=== PATIENT | male | born 1985 | race Caucasian/White ===

== ENCOUNTER → 2021-03-01 | Outpatient (CLI) | payer OTHER, SELFPAY | END | disposition home or self-care (01) | LOC: LABSPEC 13:54 | PROVIDERS: PCP Family Medicine; Referring Provider Family Medicine; Visit Provider Family Medicine | DX: Z20.822 Contact with and (suspected) exposure to COVID-19 (principal) | CPT/HCPCS: 87635; U0002 ==

== ENCOUNTER 2023-05-31 16:10 | Outpatient (CLI) | payer OTHER, SELFPAY ==
--- NOTE | 2023-05-31 | VAS_PTH ---
PATIENT: SHANTAL HURST LOC: [facility] U#:[id number] AGE/SX: 38/M ROOM: RE05/31/[address]: Dr. Saeed Castillo MD : [id number] BED: DIS: 05/31/2023 SPEC #: [id number] RECD: 05/31/23 15:57 STATUS: CARLOS LIYAH #: [id number] BRITTANY: 05/31/23 00:[address]: Saeed Castillo DEPT: SURGICAL PATHOLOGY RECD BY: Stacey Chaudhry ENTERED: 06/04/23 23:02 SP TYPE: VAS OTHR DR: Dr. James Reyes MD Tissues: A - Vas deferens, NOS B - Vas deferens, NOS Procedures: Surgery Specimen Level II HEADER OPERATION: Bilateral partial vasectomy PRE-OP DIAGNOSIS: Sterilization TISSUE SUBMITTED: A - Left vas deferens, B - Right vas deferens MICROSCOPIC DIAGNOSIS A. Left vas deferens, partial vasectomy: Completely transected segment of vas deferens, no pathologic diagnosis. B. Right vas deferens, partial vasectomy: Completely transected segment of vas deferens, no pathologic diagnosis. TONY:mahesh 06/05/2023 MICROSCOPIC DESCRIPTION Slides are reviewed. GROSS DESCRIPTION A - Received is one container designated left vas deferens. The specimen consists of a tubular segment of cordova soft tissue measuring 0.5 cm in length and 0.1 cm in diameter. The specimen is sectioned and submitted entirely in one cassette. B - Received is one container designated right vas deferens. The specimen consists of a tubular segment of cordova soft tissue measuring 0.6 cm in length and 0.2 cm in diameter. The specimen is sectioned and submitted entirely in one cassette. / TONY:mahesh 06/03/2023 TC:4 [facility]: [id number] x2
== END 2023-05-31 23:59 | disposition home or self-care (01) ==
LOC: LABSPEC 16:12
PROVIDERS: PCP Family Medicine; Referring Provider Surgery; Visit Provider Surgery
DX: Z98.52 Vasectomy status (principal)
CPT/HCPCS: 88302

== ENCOUNTER → 2023-07-05 | Outpatient (CLI) | payer OTHER, SELFPAY ==
[2023-07-05 13:26] LABS: Semen Analysis Post Vas ABSENT
[2023-07-09 15:26] LABS: Pathologist Review Reviewed
== END | disposition home or self-care (01) ==
LOC: LAB 10:40
PROVIDERS: PCP Family Medicine; Referring Provider Surgery; Visit Provider Surgery
DX: Z30.2 Encounter for sterilization (principal)
CPT/HCPCS: 89321

== ENCOUNTER → 2023-07-11 | Outpatient (CLI) | payer OTHER, SELFPAY ==
[2023-07-11 11:13] LABS: Semen Analysis Post Vas ABSENT
[2023-07-12 14:16] LABS: Pathologist Review Reviewed
== END | disposition home or self-care (01) ==
LOC: LABSPEC 08:04
PROVIDERS: PCP Family Medicine; Referring Provider Surgery; Visit Provider Surgery
DX: Z30.2 Encounter for sterilization (principal)
CPT/HCPCS: 89321

== ENCOUNTER 2024-10-13 16:50 | Emergency (ER) | payer OTHER, SELFPAY ==
[2024-10-13 16:51] VITALS: BP 136/83; PULSE 69; RESP 16; TEMP 37.3; O2SAT 100; BMI 26.1
[2024-10-13] MEDS: Metoclopramide 10 MG/2 ML Vial 5 MG IV (17:18)
[2024-10-13] MEDS: DiphenhydrAMINE 50 MG/ML Syringe 25 MG IV (17:18)
[2024-10-13] MEDS: 0.9% Normal Saline (1000mL) 1,000 ML 999 ML IV (17:18)
[2024-10-13 17:42] LABS: Absolute Lymphocyte Count 1.21 X10^3/uL (0.83-4.51); Basophil# 0.02 X10^3/uL; Basophil% 0.3 % (0-1); Hematocrit 44.2 % (40-54); Hemoglobin 15.4 g/dL (13.0-16.5); Lymphocyte # 1.21 X10^3/ul (0.83-4.51); Lymphocyte % 17.6 % (19-41); Mean Corp Hgb Conc 34.8 g/dL (32-36); Mean Corpuscular Hgb 29.4 pg (27.0-32.0); Mean Corpuscular Volume 84.4 fL (80-94); Mean Platelet Vol. 9.9 fl (6.2-12.0); Monocyte# 0.64 X10^3/uL; Monocyte% 9.3 % (0-10); NRBC Flagged by Analyzer 0 % (0-5); Neutrophil # 4.98 X10^3/uL (2.7-7.7); Neutrophil % 72.5 % (47-70); Platelet Count 265 K/mm3 (150-450); RBC Distribution Width CV 12.4 % (11.6-14.6); Red Blood Count 5.24 M/mm3 (4.6-6.2); White Blood Count 6.9 K/mm3 (4.4-11.0)
[2024-10-13 17:45] LABS: Anion Gap 8 (5-15); BUN 18 mg/dL (7-18); BUN/Creat Ratio 18.6 RATIO (10-20); Calcium,Total 9.2 mg/dL (8.5-10.1); Chloride 101 mmol/L (98-107); Creatinine, Serum 0.97 mg/dL (0.70-1.30); EST Glomerular Filtration Rate 92 mL/min (>60); Est Glom Filt Rate - Afr Amer 112 mL/min (>60); Estimated Creatinine Clearance 107.66 ml/min; Glucose 120 mg/dL (74-106); Potassium 3.7 mmol/L (3.5-5.1); Sodium Level 135 mmol/L (136-145)
[2024-10-13 18:46] VITALS: BP 145/76; PULSE 75; RESP 14; O2SAT 98
[2024-10-13] MEDS: Ketorolac 30 MG/ML Syringe IV (19:21)
[2024-10-13 19:26] VITALS: BP 145/76; PULSE 71; RESP 16; TEMP 36.8; O2SAT 99
== END 2024-10-13 19:44 | disposition home or self-care (01) ==
PROVIDERS: Emergency Provider Emergency Medicine; PCP Family Medicine; Visit Provider Emergency Medicine
DX: G43.909 Migraine, unspecified, not intractable, without status migrainosus (principal)
CPT/HCPCS: 70450; 80048; 85025; 96361; 96374; 96375; 99283; J7030; A4216

== ENCOUNTER → 2025-05-13 | Outpatient (CLI) | payer OTHER, SELFPAY ==
--- NOTE | 2025-05-13 16:52 | RAD_ITS ---
PROCEDURE: L/S SPINE W BEND MIN 6 VW 05/13/2025 REASON FOR EXAM: LBP WITH RADIATION TO L LEG TECHNIQUE: Standing AP view(s) of the thoracic and lumbar spine. FINDINGS: Mild levoscoliosis apex at L3. Grade 1 anterolisthesis of L5 on S1 measuring 4.6 mm. No evidence of instability on flexion/extension images. There are diffuse spondylotic changes. Findings are demonstrated to by diffuse disc space narrowing, osteophyte formation and degenerative endplate sclerosis. There is diffuse facet joint arthropathy with secondary bilateral neural foramina narrowing. No fracture or dislocation is seen. No aggressive lytic or blastic bony lesion is noted. RAD/L/S Spine w Bend Min 6 Vw IMPRESSION: Spondylosis. No evidence of instability. Reading [facility]
== END | disposition home or self-care (01) ==
LOC: MTRAD 16:52
PROVIDERS: PCP Family Medicine; Referring Provider Family Medicine; Visit Provider Family Medicine
DX: M54.50 Low back pain, unspecified (principal)
CPT/HCPCS: 72114

== ENCOUNTER → 2025-05-29 | Outpatient (CLI) | payer SELFPAY, OTHER ==
--- OUTSIDE RECORDS SUMMARY | 2025-05-29 09:49 | XMS RPT_ITS | CCD ---
Author Organization [facility] Care Team Providers Care Insurance Sales Specialist Name Role Phone Unavailable Primary Care Provider UnavailDr. Saleem Ibarra Primary Care Provider Dr. Saleem Reyes Referring Provider Dr. Saeed Castillo Attending Provider Amy HUSAIN, Dr. Ramirez Primary Care Provider Amy HUSAIN, Dr. Ramirez Attending Provider Amy HUSAIN, Dr. Ramirez Referring Provider [phone] James Reyes Primary Care Unavailable James Reyes Attending Unavailable James Reyes Referring Unavailable Esteban Piña Attending Unavailable James Reyes Primary Care Unavailable James Reyes Primary Care Unavailable James Reyes Attending Unavailable James Reyes Referring Unavailable Medications Current Medications Medication Drug Class(es) Dates Sig (Normalized) Sig (Original) dicloxacillin 500 mg oral capsule (1 source) Penicillin-class Antibacterial Start: 05-04-2023 End: 05-09-2023 take 1 capsule by mouth four times daily dicloxacillin (DYNAPEN) 500 mg capsule Indications: Olecranon bursitis of left elbow Take 1 capsule by mouth four times daily for 5 days. 20 capsule 0 05/04/2023 05/09/2023 Active Comment on above: Take 1 capsule by [facility] four times daily for 5 days. metoclopramide 10 mg oral tablet (1 source) Dopamine-2 Receptor Antagonist Start: 10-13-2024 take 1 tablet by mouth every six hours as needed for nausea and vomiting Metoclopramide Hcl 10 mg tablet Active 10 mg PO EVERY 6 HOURS as needed for nausea and vomiting or migraine October 13, 2024 8:15pm Completed/Discontinued Medications Medication Drug Class(es) Dates Sig (Normalized) Sig (Original) amoxicillin 875 mg oral tablet (3 sources) Penicillin-class Antibacterial Start: 02-03-2016 End: 05-23-2023 take 1 tablet by mouth twice daily Amoxicillin 875 MG tablet Discontinued 875 mg PO TWICE A DAY February 03, 2016 1:00am May 23, 2023 8:00am LORazepam 2 mg oral tablet (3 sources) Benzodiazepine Start: 05-23-2023 End: 05-24-2023 take 1 tablet by mouth once Lorazepam (Ativan) 2 mg tablet Discontinued 2 mg PO ONCE 1 May 23, 2023 12:00am May 23, 2023 12:00am May 24, 2023 12:04am Take two hours before procedure oxyCODONE hydrochloride 5 mg oral tablet (3 sources) Opioid Agonist Start: 05-31-2023 End: 06-03-2023 take 1 tablet by mouth every four hours as needed for pain Oxycodone 5 mg tablet Discontinued 5 mg PO Q4H as needed for pain 7 May 31, 2023 June 02, 2023 12:00am June 03, 2023 12:03am Problems Problem Classification Problem Date Documented Date Episodic/Chronic Contraceptive and procreative management (11 sources) Patient encounter status; Translations: [Encounter for other general counseling and advice on contraception] 05-23-2023 Episodic Headache; including migraine (1 source) Migraine; Translations: [Migraine, unspecified, not intractable, without status migrainosus] 10-21-2024 Chronic Headache; including migraine (1 source) Headache; including migraine; Translations: [Headache, unspecified] Onset: 11-05-2024 Other connective tissue disease (1 source) Bursitis of olecranon of left elbow; Translations: [Olecranon bursitis, left elbow] Episodic Unclassified (1 source) Other intervertebral disc degeneration, lumbar region without mention of lumbar back pain or lower extremity pain; Translations: [Other intervertebral disc degeneration, lumbar region without mention of lumbar back pain or lower extremity pain] Onset: 05-27-2025 Unclassified (1 source) Low back pain, unspecified; Translations: [Low back pain, unspecified] Onset: 05-19-2025 Results Test Name Value Interpretation Reference Range Facility L/S Spine w Bend Min 6 Vwon 05-13-2025 L/S Spine w Bend Min 6 Vw [facility] Imaging Services [address] [place] [address] L/S Spine w Bend Min 6 Vw MR#: [id number] Acct: [id number] Name: SHANTAL HURST Rep #: [id number] : 1985 M 40 From: Tex fink MD PCP: Dr. James Reyes MD Status: REG CLI Study: L/S Spine w Bend Min 6 Vw Date of Exam: Exam# [id number] Ordering Dr: James Reyes PROCEDURE: L/S SPINE W BEND MIN 6 VW 05/13/2025 REASON FOR EXAM: LBP WITH RADIATION TO L LEG TECHNIQUE: Standing AP view(s) of the thoracic and lumbar spine. FINDINGS: Mild levoscoliosis apex at L3. Grade 1 anterolisthesis of L5 on S1 measuring 4.6 mm. No evidence of instability on flexion/extension images. There are diffuse spondylotic changes. Findings are demonstrated to by diffuse disc space narrowing, osteophyte formation and degenerative endplate sclerosis. There is diffuse facet joint arthropathy with secondary bilateral neural foramina narrowing. No fracture or dislocation is seen. No aggressive lytic or blastic bony lesion is noted. RAD/L/S Spine w Bend Min 6 Vw IMPRESSION: Spondylosis. No evidence of instability. Reading Location: [place] [address] CC: Dr. James Reyes MD Digital Producer: Signed Normal [facility] Basic Metabolic Profile (BMP )on 10-13-2024 BUN/CRE 18.6 RATIO Normal 10-20 [facility] Comment on above: Performed By: #### L 100.0100, L500.2500 #### [facility] Laboratory [address] [place], [place], [address] ([phone] CA,Total 9.2 mg/dL Normal 8.5-10.1 [facility] Comment on above: Performed By: #### L 100.0100, L500.2500 #### [facility] [address] [place], [address] Chloride [Moles/Vol] 101 mmol/L Normal 98-107 [facility] Comment on above: Performed By: #### L 100.0100, L500.2500 #### [facility] [address] [place], [address] CO2 [Moles/Vol] 26.0 mmol/L Normal 21.0-32.0 [facility] Comment on above: Performed By: #### L 100.0100, L500.2500 #### [facility] [address] [place], [address] Creatinine [Mass/Vol] 0.97 mg/dL Normal 0.70-1.[address] [facility] Comment on above: Result Comment: The validity of the calculated GFR GFRAA in patients over 70 years has not been determined. Clinical correlation is essential. Performed By: #### L 100.0100, L500.2500 #### [facility] [address] [place], [address] ECRCL 107.66 ml/min Normal [facility] Comment on above: Performed By: #### L 100.0100, L500.2500 #### [facility] [address] [place], [address] EST GFR - AA 112 mL/min Normal >60 [facility] Comment on above: Result Comment: Afri can Brazilian GFR Calc Performed By: #### L 100.0100, L500.2500 #### [facility] [address] [place], [address] GAP 8 Normal 5-15 [facility] Comment on above: Performed By: #### L 100.0100, L500.2500 #### [facility] [address] [place], [address] GFR/1.73 sq M.predicted among non-blacks MDRD (S/P/Bld) [Vol rate/Area] 92 mL/min/{1.73_m2} Normal >60 [facility] Comment on above: Result Comment: Non- GFR Calc Performed By: #### L 100.0100, L500.2500 #### [facility] [address] [place], [address] Glucose [Mass/Vol] 120 mg/dL High 74-106 [facility] Comment on above: Result Comment: Fast ing Glucose result from 100 to 125 mg/dL suggests IMPAIRED HOMEOSTASIS per A.D.A. criteria. Performed By: #### L 100.0100, L500.2500 #### [facility] [address] [place], [address] Potassium [Moles/Vol] 3.7 mmol/L Normal 3.5-5.[address] [facility] Comment on above: Performed By: #### L 100.0100, L500.2500 #### [facility] [address] [place], [address] Sodium [Moles/Vol] 135 mmol/L Low 136-145 [facility] Comment on above: Performed By: #### L 100.0100, L500.2500 #### [facility] [address] [place], [address] Urea nitrogen [Mass/Vol] 18 mg/dL Normal 7-18 [facility] Comment on above: Performed By: #### L 100.0100, L500.2500 #### [facility] [address] [place], [address] Brain/Head without Contrasto n 10-13-2024 Brain/Head without Contrast [facility] Imaging Services [address] [place] [address] Brain/Head without Contrast MR#: [id number] Acct: [id number] Name: SHATNAL HURST Rep #: [id number] : 1985 M 39 From: Nolan Rojo PCP: Dr. James Reyes MD Status: REG ER Study: Brain/Head without Contrast Date of Exam: 10/02 01/25 Exam# [id number] Ordering Dr: Esteban Piña MD [id number] STUDY: CT BRAIN WITHOUT CONTRAST REASON FOR EXAM: Male, 39 years old. severe headache, vomiting RADIATION DOSAGE (If Supplied By Facility): CTDIvol = ( 44.99 ) mGy, DLP = ( 846.73 ) mGycm TECHNIQUE: Transaxial CT imaging of the brain was performed without administration of intravenous contrast material. Individualized dose optimization techniques were used for this CT. The protocol utilizes one or more of the following dose reduction techniques: automated exposure control, adjustment of mA and/or kV according to patient size,and/or use of iterative reconstruction technique. COMPARISON: No relevant priors. FINDINGS: Normal soft tissue structures. Normal calvarium. Normal size ventricles and extra-axial spaces for the patient''s age. Normal white matter tracts of the cerebral hemispheres. Normal basal ganglia and thalami. Normal brainstem. Normal cerebellum. There is no intracranial hemorrhage. There are no findings of an acute ischemic infarction. Normal visualized paranasal sinuses. CT/Brain/Head without Contrast IMPRESSION: Normal unenhanced CT scan of the brain. Electronically Signed: Nolan Chadwick MD at 18:18 EST , CC: Dr. Esteban Piña MD; Dr. James Reyes MD Digital Producer: Signed Normal [facility] CBC W/Diff, Automatedon 10-02 Absolute Lymph 1.21 X10 3/uL Normal 0.83-4.51 [facility] Comment on above: Performed By: #### L 100.0100, L500.2500 #### [facility] [address] [place], [address] Absolute Neut 5.0 X10 3/uL Normal 2.0-7.7 [facility] Comment on above: Performed By: #### L 100.0100, L500.2500 #### [facility] [address] [place], [address] Basophils/100 WBC (Bld) 0.3 % Normal 0-1 [facility] Comment on above: Performed By: #### L 100.0100, L500.2500 #### [facility] [address] [place], [address] Eosinophils/100 WBC (Bld) 0.0 % Normal 0-5 [facility] Comment on above: Performed By: #### L 100.0100, L500.2500 #### [facility] [address] [place], [address] Erythrocyte distribution width (RBC) [Ratio] 12.4 % Normal 11.6-14.6 [facility] Comment on above: Performed By: #### L 100.0100, L500.2500 #### [facility] [address] [place], [address] Hematocrit (Bld) [Volume fraction] 44.2 % Normal 40-54 [facility] Comment on above: Performed By: #### L 100.0100, L500.2500 #### [facility] [address] [place], [address] Hemoglobin (Bld) [Mass/Vol] 15.4 g/dL Normal 13.0-16.5 [facility] Comment on above: Performed By: #### L 100.0100, L500.2500 #### [facility] [address] [place], [address] IG% 0.300 Normal 0.0-0.9 [facility] Comment on above: Result Comment: IG% - Immature Granulocytes (promyelocytes, myelocytes and metamyelocytes) > 1% indicates that a LEFT SHIFT is Present. Performed By: #### L 100.0100, L500.2500 #### [facility] [address] [place], [address] Lymphocytes/100 WBC (Bld) 17.6 % Low 19-41 [facility] Comment on above: Performed By: #### L 100.0100, L500.2500 #### [facility] [address] [place], [address] MCH (RBC) [Entitic mass] 29.4 pg Normal 27.0-32.0 [facility] Comment on above: Performed By: #### L 100.0100, L500.2500 #### [facility] [address] [place], [address] MCHC (RBC) [Mass/Vol] 34.8 g/dL Normal 32-[address] [facility] Comment on above: Performed By: #### L 100.0100, L500.2500 #### [facility] [address] [place], [address] MCV (RBC) [Entitic vol] 84.4 fL Normal 80-94 [facility] Comment on above: Performed By: #### L 100.0100, L500.2500 #### [facility] [address] [place], [address] Monocytes/100 WBC (Bld) 9.3 % Normal 0-10 [facility] Comment on above: Performed By: #### L 100.0100, L500.2500 #### [facility] [address] [place], [address] Neutrophils/100 WBC (Bld) 72.5 % High 47-70 [facility] Comment on above: Performed By: #### L 100.0100, L500.2500 #### [facility] [address] [place], [address] Nucleated RBC (Bld) [#/Vol] 0 10*3/uL Normal 0-5 [facility] Comment on above: Performed By: #### L 100.0100, L500.2500 #### [facility] [address] [place], [address] Platelet mean volume (Bld) [Entitic vol] 9.9 fL Normal 6.2-12.0 [facility] Comment on above: Performed By: #### L 100.0100, L500.2500 #### [facility] [address] [place], [address] Platelets (Bld) [#/Vol] 265 10*3/uL Normal 150-450 [facility] Comment on above: Performed By: #### L 100.0100, L500.2500 #### [facility] [address] [place], [address] RBC (Bld) [#/Vol] 5.24 10*6/uL Normal 4.6-6.2 [facility] Comment on above: Performed By: #### L 100.0100, L500.2500 #### [facility] [address] [place], [address] RDW SD 38.0 fl Normal 35.1-43.9 [facility] Comment on above: Performed By: #### L 100.0100, L500.2500 #### [facility] [address] [place], [address] WBC (Bld) [#/Vol] 6.9 10*3/uL Normal 4.4-11.0 [facility] Comment on above: Performed By: #### L 100.0100, L500.2500 #### [facility] [address] [place], [address] Emergency Department Summary on 10-13-2024 Emergency Department Summary [facility] Medical Records Department [address] [place] [address] Emergency Department Summary 10/13/24 MR#: [id number] Acct: [id number] Name: SHANTAL HURST Rep #: [id number] : 1985 39 From: Esteban Piña MD PCP: Dr. James Reyes MD Status:DEP ER Location: ED HPI History of Present Illness Chief Complaint: Headache Informant: patient and spouse/S.O. Narrative Narrative: 39-year-old presenting for severe headache that started gradually day before yesterday, gradually worsening, feels like it is a migraine although he says that he has never had 1 before. States it feels like it is behind his left eye, he is sensitive to the light, a little blurry vision without diplopia, and he states he has been vomiting every time he tries to get out of bed, so he has not had anything to eat or really much to drink in that period of time. Denies any recent head injury. The day that this started, there was a large low pressure system that came through this region. In addition to that, he had a weird episode that he thinks may have been a panic attack a week or so ago, and since then he has been trying to curb his coffee/caffeine use, but he states he did that meaningfully about 3 days before the onset of this headache without any headaches at that point. He denies any focal neurologic symptoms, disequilibrium, neck stiffness, fevers or chills, confusion, or other new symptoms. PFSH PFS Medical History no medical history no medical history Home Medications ???Medication ???Instructions ???Recorded ???Last Taken ???Type metoclopramide HCl 10 mg tablet 10 mg PO Q6H PRN nausea and 10/13/24 Unknown Rx vomiting or migraine #20 tabs Allergy/AdvReac Type Severity Reaction Status Date / Time No Known Allergies Allergy Verified 10/13/24 16:51 Family History (Updated 05/23/23 @ 07:58 by Shawanda Hidalgo) Mother Cancer Social History Smoking Status: Never smoker alcohol intake: never substance use type: does not use ROS ROS ED Constitutional Constitutional ED: Denies chills or fever(s) Eyes Eyes: Reports blurry vision; Denies diplopia ENT ENT ED: Denies ear pain or sore throat Cardiovascular Cardiovascular: Denies chest pain or palpitations Respiratory/Chest Respiratory/Chest: Denies cough or dyspnea Gastrointestinal Gastrointestinal: Reports nausea and vomiting; Denies abdominal pain or diarrhea Genitourinary Genitourinary ED: Denies dysuria or urinary frequency Musculoskeletal Musculoskeletal: Denies back pain or myalgias Integumentary Denies abscess or rash Neurologic Neurologic: Reports headache(s); Denies paresthesias or weakness EXAM Physical Exam Const Vital Signs: 10/13/24 16:51 10/13/24 18:46 Temperature 99.1 F Temperature Source Oral Pulse Rate 69 75 Respiratory Rate 16 14 Blood Pressure 136/83 H 145/76 H Blood Pressure Mean 100 99 Pulse Ox 100 98 Oxygen Delivery Method Room Air Positive well nourished and well developed General Appearance ED: well developed and NAD HEENT Reports normocephalic and moist mucous membranes atraumatic Eyes PERRL, EOMs intact bilaterally and conjunctivae normal Eyes Narrative: photophobia Neck no lymphadenopathy, supple and no meningeal signs Resp normal respiratory effort and clear to auscultation bilaterally Cardio regular rate, regular rhythm and no murmurs Rate: Negative for tachycardic GI non-tender and non-distended Palpation: soft Extremity normal to inspection and full ROM Neuro oriented x3 and CN's II-XII intact bilaterally Sensorium / Orientation: awake and alert Speech: speech normal Gait (Neuro): normal gait Motor Exam: strength 5/5 throughout Psych mental status grossly normal Skin Lesions: no lesions Rashes: no rashes MDM MDM MDM Narrative Medical decision making narrative: CT head was obtained in order to evaluate for the possibility of intracranial hemorrhage, mass, unusual asymmetry, this is basically negative I reviewed the images and report which I agree with. Also obtain basic labs, he does not have hypercalcemia to suggest hyperparathyroidism, the rest of his labs are unremarkable. In the meantime he was given IV fluids, Reglan, Benadryl he felt a lot better after that, nausea resolved headache improved. Further given Toradol after the CT resulted, and tolerated a p.o. fluid challenge. I presume this was a migraine for unclear reasons, however there are possibilities as above, including whether and caffeine withdrawal. Will give him a prescription for Reglan to use as needed as an outpatient and advised to follow-up with his doctor. Lab Data Attestation: I reviewed the patient's lab results. Labs: Laboratory Results - (more content not included)... Normal [facility] Review by pathologistOrdered By: Saeed Castillo on 07-05-2023 Pathologist review Jm (Unsp spec) [Interp] Reviewed [facility] Comment on above: Previous reported re sult: April sonja Edited by: RGOOD on 07/09/23:1526Sperms are not seen.Hemanth Hansen M.D. 07/09/23 AMENDED REPORT 07/09/23 1526 PATH REV previously reported as: April sonja Spermatozoa detection in bowen en by light microscopy post vasectomyOrdered By: Saeed Castillo on 07-05-2023 Spermatozoa post vasectomy LM Ql (Bowen) ABSENT [facility] Comment on above: CYTOSPIN PREPARATION USED FOR CONCENTRATIONOF SPECIMEN PRIOR TO STAINING AND EXAMINATION CNOVon 05-04-2023 CNOV Office Visit (UCWSTR) ORACIO HURST ([id number]) 1985 M Date Time Provider Department 05/04/23 9:45 AM NOLAN WEINBERG [facility] During your visit today, we recorded the following information about you: Temperature Pulse Respiration Blood pressure 98.5 degrees 65/minute 20/minute 132/88 Weight 90.1 kg Nolan Weinberg MD 05/04/2023 10:12 AM Addendum Patient presents with: Infection: Possible infection in left elbow x 2 weeks HPI: Skin Lesion: Location: back of the left elbow Duration: 2 weeks. No known injury Pruritis/Pain: tender, does not hurt in the joint Change: waxing and waning, seems to improve during the day Drainage/blister/pus tule/ulceration: redness and swelling, no drainage, no fevers/chills Treatment: warm compress, ibuprofen/acetaminop hen PAST MEDICAL HISTORY Diagnosis Date NEGATIVE MEDICAL HISTORY MEDICATIONS: No prescriptions on file. ALLERGIES: ALLERGIES Not on File VITALS: BP 132/88 Pulse 65 Temp 36.9 ?C (98.5 ?F) Resp 20 Wt 90.1 kg (198 lb 9.6 oz) SpO2 97% PE: Pleasant, in no acute distress. Elbow: left. Remote upper and lower arm tattoo. Erythema, warmth, and mild induration of the posterior surface of the elbow. There is fluid collection below the skin of the distal olecranon. No epitrochlear lymphadenopathy ASSESSMENT/PLAN: 1. Olecranon bursitis of left elbow - ICD9: 726.33, ICD10: M70.22 Infectious vs aseptic bursitis. Start - DICLOXACILLIN 500 MG CAPSULE Follow up with PCP or orthopedics next week for re-evaluation. Follow up sooner with signs of worsening infection such as increasing redness, pain, swelling, purulent drainage, or fever/malaise. Nolan Weinberg MD Allergies As of Date: 05/04/2023 (Not on File) Date Reviewed: 05/04/2023 Reviewed by: Sirisha Cooper MA - Fully Assessed Reason for Visit: Infection [Other] Cmt: Possible infection in left elbow x 2 weeks Primary Visit Diagnosis:Olecranon bursitis of left elbow [M70.22] Order(s):dicloxacill in (DYNAPEN) 500 mg capsuleTake 1 capsule by mouth four times daily for 5 days.Disp: 20 capsuleRfl: 0 Prescriptions as of 05/04/2023 - dicloxacillin (DYNAPEN) 500 mg capsule Take 1 capsule by mouth four times daily for 5 days. Problem List As Of Date: 05/04/2023 (None) Prescriptions ordered this encounter Disp Refills Start End DICLOXACILLIN 500 MG CAPSULE 20 c* 0 05/04/2023 05/09/2023 Route: ORAL Sig: Take 1 capsule by mouth four times daily for 5 days. Encounter Status:Closed by NOLAN WEINBERG on 05/04/23 Normal [facility] Vital Signs Date Time Vital Sign Value Performing Clinician Facility 05-23-2023 07:58-0400 Body temperature 97.1 [degF] Dr. Saleem Reeys Work Phone: [facility] 05-23-2023 07:58-0400 Body weight 91.[address] Saleem Reyes Work Phone: [facility] 05-23-2023 07:58-0400 Diastolic blood pressure 79 mm[Hg] Dr. Saleem Reyes Work Phone: [facility] 05-23-2023 07:58-0400 Heart rate 71 /min Dr. Saleem Reyes Work Phone: [facility] 05-23-2023 07:58-0400 Respiratory rate 17 /min Dr. Saleem Reyes Work Phone: [facility] 05-23-2023 07:58-0400 SaO2% (BldA) [Mass fraction] 98 % Dr. Saleem Reyes Work Phone: [facility] 05-23-2023 07:58-0400 Systolic blood pressure 123 mm[Hg] Dr. Saleem Reyes Work Phone: [facility] 05-04-2023 09:42-0400 Body temperature 98.49 [degF] Nolan Weinberg MD Work Phone: [facility] 05-04-2023 09:42-0400 Body weight 90.08 kg Nolan Weinberg MD Work Phone: [facility] 05-04-2023 09:42-0400 Diastolic blood pressure 88 mm[Hg] Nolan Weinberg MD Work Phone: [facility] 05-04-2023 09:42-0400 Heart rate 65 /min Nolan Weinberg MD Work Phone: [facility] 05-04-2023 09:42-0400 Respiratory rate 20 /min Nolan Weinberg MD Work Phone: [facility] 05-04-2023 09:42-0400 SaO2% (BldA) [Mass fraction] 97 % Nolan Weinberg MD Work Phone: [facility] 05-04-2023 09:42-0400 Systolic blood pressure 132 mm[Hg] Nolan Weinberg MD Work Phone: [facility] Encounters Encounter Date Encounter Type Care Provider Facility Start: 05-29-2025 ambulatory James Reyes Formerly [facility] lity:[facility] Start: 05-13-2025 End: 05-13-[address] James Reyes MD Work Phone: [facility] Work Phone: Start: 05-13-2025 End: 05-13-[address] James Reyes MD -[facility] [place] Work Phone: Start: 05-13-2025 End: 05-13-2025 ambulatory James Reyes Facility:[facility] Start: 10-13-2024 End: 10-13-2024 Emergency department patient visit Esteban Ayana Facility:[facility] Start: 07-05-2023 End: 07-05-[address] Saleem Reyes Work Phone: [facility] Work Phone: Start: 07-05-2023 End: 07-05-[address] Saleem Reyes Work Phone: [facility]-Laboratory Work Phone: Start: 06-07-2023 End: 06-07-[address] Saleem Reyes Work Phone: [facility] Work Phone: Start: 05-31-2023 End: 05-31-[address] Saleem Reyes Work Phone: [facility] Work Phone: Start: 05-31-2023 End: 05-31-[address] Saleem Reyes Work Phone: [facility]-Laboratory, Specimen Work Phone: Start: 05-31-2023 End: 05-31-[address] Saleem Reyes Work Phone: [facility] Work Phone: Start: 05-23-2023 End: 05-23-[address] Saleem Reyes Work Phone: [facility] Work Phone: Start: 05-04-2023 End: 05-04-2023 ambulatory Facility:[facility] Start: 05-04-2023 End: 05-04-2023 Patient encounter procedure Nolan Weinberg MD Work Phone: [facility] Comment on above: Olecranon bursitis o f left elbow (Primary Dx) Procedures Date Procedure Procedure Detail Performing Clinician Start: 05-13-2025 Complete x-ray serie s of lumbar spine with bending views Dr. James Reyes MD Work Phone: Plan of Treatment Date Care Activity Detail Author Start: 08-02-2023 Influenza vaccination INFLUENZ A (Season Ended) [facility] Start: 12-02-2022 DEPRESSION ASSESSMENT DEPRESSION ASS ESSMENT [facility] Start: 2022 LIPID SCREEN LIPID SCREEN [facility] Start: 2006 Urine microalbumin profile DTAP,TDAP,TD (1 - Tdap) [facility] Start: 2005 HEPATITIS C SCREENING HEPATITIS C SC REENING [facility] Start: 2005 HIV SCREENING HIV SCREENING [facility] Start: 1987 COVID-19 VACCINE (#1) COVID-19 VACCI NE (#1) [facility] Start: 1987 HEPATITIS B (1 of 3 - 3-dose series) HEPATITIS B (1 of 3 - 3-dose series) [facility] [place] [Presenc e] in [place] by Light microscopy --post vasectomy [facility] Payers Date Payer Category Payer Unknown [id number] 2024 Self-pay [id number] 2023 Private Health Insurance [id number] 2023 Private Health Insurance [employer] A ETNA CHOICE POS II [id number] 2023-Present [phone] [address] [place] [address] POS [id number] Unknown [facility] [id number] Unknown [id number] Unknown [id number] Unknown [id number] Social History Date Type Detail Facility Start: 05-04-2023 End: 10-13-2024 Tobacco smoking status NHIS Never smoked tobacco [facility] Start: 05-04-2023 Tobacco use and exposure Smokeless tobacco non-user [facility] Start: 1985 Sex Assigned At Male [facility] Start: 05-31-2023 Tobacco smoking status COIS Unknown if ever smoked [facility] NEGATED: Highlighted rowStart: NINF History of tobacco use Passive smoker [facility] Radiology Diagnostic study note 05-14-2025 Note Date & Type Note Facility 05-14-2025 Radiology Diagnostic study note [facility] Imaging Services [address] [place] [address] L/S Spine w Bend Min 6 Vw MR#: [id number] Acct: [id number] Name: SHANTAL HURST Rep #: [id number] : 1985 M 40 From: Micki Lantigua MD PCP: Dr. James Reyes MD Status: REG CLI Study:L/S Spine w Bend Min 6 Vw Date of Exam: 05/13/25 Exam# [id number] Ordering Dr: Anival Reyes MD PROCEDURE: L/S SPINE W BEND MIN 6 VW 05/13/2025 REASON FOR EXAM: LBP WITH RADIATION TO L LEG TECHNIQUE: Standing AP view(s) of the thoracic and lumbar spine. FINDINGS: Mild levoscoliosis apex at L3. Grade 1 anterolisthesis of L5 on S1 measuring 4.6 mm. No evidence of instability on flexion/extension images. There are diffuse spondylotic changes. Findings are demonstrated to by diffuse disc space narrowing, osteophyte formation and degenerative endplate sclerosis. There is diffuse facet joint arthropathy with secondary bilateral neural foramina narrowing. No fracture or dislocation is seen. No aggressive lytic or blastic bony lesion is noted. RAD/L/S Spine w Bend Min 6 Vw IMPRESSION: Spondylosis. No evidence of instability. Reading Location: [place] [address] CC: Dr. James Reyes MD ~ Digital Producer: Signed [facility] Progress note 05-04-2023 Note Date & Type Note Facility 05-04-2023 Note HNO ID: [id number] Author: Nolan Weinberg MD Service: ? Author Type: Physician Type: Progress Notes Filed: 05/04/2023 10:12 AM Note Text: Patient presents with: Infection: Possible infection in left elbow x 2 weeks HPI: Skin Lesion: Location: back of the left elbow Duration: 2 weeks. No known injury Pruritis/Pain: tender, does not hurt in the joint Change: waxing and waning, seems to improve during the day Drainage/blister/pustule/ulceration: redness and swelling, no drainage, no fevers/chills Treatment: warm compress, ibuprofen/acetaminophen PAST MEDICAL HISTORY Diagnosis Date NEGATIVE MEDICAL HISTORY MEDICATIONS: No prescriptions on file. ALLERGIES: ALLERGIES Not on File VITALS: BP 132/88 Pulse 65 Temp 36.9 ?C (98.5 ?F) Resp 20 Wt 90.1 kg (198 lb 9.6 oz) SpO2 97% PE: Pleasant, in no acute distress. Elbow: left. Remote upper and lower arm tattoo. Erythema, warmth, and mild induration of the posterior surface of the elbow. There is fluid collection below the skin of the distal olecranon. No epitrochlear lymphadenopathy ASSESSMENT/PLAN: 1. Olecranon bursitis of left elbow - ICD9: 726.33, ICD10: M70.22 Infectious vs aseptic bursitis. Start - DICLOXACILLIN 500 MG CAPSULE Follow up with PCP or orthopedics next week for re-evaluation. Follow up sooner with signs of worsening infection such as increasing redness, pain, swelling, purulent drainage, or fever/malaise. Nolan Weinberg MD [facility] History of Present illness Narrative 05-04-2023 Nolan Weinberg MD - 05/04/2023 9:55 AM EDT Note Date & Type Note Facility 05-04-2023 History of Presen t illness Narrative Patient presents with: Infection: Possible infection in left elbow x 2 weeks HPI: Skin Lesion: Location: back of the left elbow Duration: 2 weeks. No known injury Pruritis/Pain: tender, does not hurt in the joint Change: waxing and waning, seems to improve during the day Drainage/blister/pustule/ulceration: redness and swelling, no drainage, no fevers/chills Treatment: warm compress, ibuprofen/acetaminophen PAST MEDICAL HISTORY Diagnosis Date NEGATIVE MEDICAL HISTORY MEDICATIONS: No prescriptions on file. ALLERGIES: ALLERGIES Not on File VITALS: BP 132/88 Pulse 65 Temp 36.9 C (98.5 F) Resp 20 Wt 90.1 kg (198 lb 9.6 oz) SpO2 97% PE: Pleasant, in no acute distress. Elbow: left. Remote upper and lower arm tattoo. Erythema, warmth, and mild induration of the posterior surface of the elbow. There is fluid collection below the skin of the distal olecranon. No epitrochlear lymphadenopathy ASSESSMENT/PLAN: 1. Olecranon bursitis of left elbow - ICD9: 726.33, ICD10: M70.22 Infectious vs aseptic bursitis. Start - DICLOXACILLIN 500 MG CAPSULE Follow up with PCP or orthopedics next week for re-evaluation. Follow up sooner with signs of worsening infection such as increasing redness, pain, swelling, purulent drainage, or fever/malaise. Nolan Weinberg MD documented in this encounter [facility] Evaluation note Note Date & Type Note Facility Evaluation note Diagnosis Olecranon bursitis of left elbow- Primary Olecranon bursitis documented in this encounter [facility] Evaluation note Note Date & Type Note Facility Evaluation note Diagnosis Onset Date Encounter for vasectomy counseling acute Encounter for sterilization acute [facility] Work Phone: Evaluation note Note Date & Type Note Facility Evaluation note Diagnosis Onset Date Encounter for vasectomy counseling acute Encounter for sterilization acute Encounter for sterilization acute [facility] Work Phone: Evaluation note Note Date & Type Note Facility Evaluation note No assessment information availa ble [facility] Work Phone: Reason for referral (narrative) Note Date & Type Note Facility Reason for referral (narrative) No reason for referral information available [facility] Work Phone: Summary Purpose Family History No Family History Records Found Relationship Condition Age at Onset Recorded Date/T mk mother Malignant neoplasm Unknown Advance Directives No Advanced Directives Records Found Advance Directive Response Recorded Date/ Time Living Will No February 03, 2016 10:50pm 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 No February 02 10:50pm Chief Complaint and Reason for Visit Chief Complaint VASECTOMY VASECTOMY BILATERAL PARTIAL VASECTOMY Reason for Visit Encounter for vasect meena counseling Encounter for sterilization Chief Complaint VASECTOMY VASECTOMY BILATERAL PARTIAL VASECTOMY VASECTOMY 05/31 EORDER Reason for Visit Encounter for vasect meena counseling Encounter for sterilization Encounter for sterilization Chief Complaint Admit Date E-ORDER May 13, 2025 4:51 pm Additional Source Comments (unrecognized sect ion and content) No Status Records FoundNo Status Records Found INFORMATION SOURCE (unrecogn ized section and content) DATE CREATED AUTHOR 05/11/2023 [facility] DATE CREATED AUTHOR AUTHOR'S ORGANIZ ATION 05/29/2025 [facility] Source Comments (unrecognize d section and content) In the event this informatio n is protected by the Federal Confidentiality of Alcohol and Drug Abuse Patient Records regulations: The Federal rules restrict any use of the information to criminally investigate or prosecute any alcohol or drug abuse patient.[facility] Reason for Visit (unrecogniz ed section and content) Reason Comments Infection Possible infection i n left elbow x 2 weeks Care Teams (unrecognized sec tion and content) Team Status: Active Member Role Status Dates No Primary Care Physician Family Provider Active Dr. Saleem Reyes MD Primary Care Provider Activ e Team Status: Inactive Member Role Status Dates Dr. Saleem Reyes MD Primary Care Provider, Refe rring Provider Active Dr. Saeed Castillo MD Attending Provider Active Team Status: Inactive Member Role Status Dates Dr. Saleem Reyes MD Primary Care Provider Activ e Dr. Saeed Castillo MD Attending Provider, Referr ing Provider Active Team Status: Active Member Role Status Dates Dr. James Reyes MD Primary Care Provider Acti ve Team Status: Inactive Member Role Status Dates Dr. James Reyes MD Primary Care Provider Acti ve Start: May 13, 2025 End: May 13, 2025 Dr. James Reyes MD Attending Provider Active Start: May 13, 2025 End: May 13, 2025 Dr. James Reyes MD Referring Provider Active Start: May 13, 2025 End: May 13, 2025 Goals (unrecognized section and content) Goals may be documented in a n alternate sectionGoals may be documented in an alternate sectionGoals may be documented in an alternate section FOR RECORDS PERTAINING TO PATIENTS WHO ARE OR HAVE BEEN ENROLLED IN A CHEMICAL DEPENDENCY/SUBSTANCEABUSE PROGRAM, SOME INFORMATION MAY BE OMITTED. This clinical summary was aggregated from multiple sources. Caution should be exercised in using it in the provision of clinical care. This summary normalizes information from multiple sources, and as a consequence, information in this document may materially change the coding, format and clinical context of patient data. In addition, data may be omitted in some cases. CLINICAL DECISIONS SHOULD BE BASED ON THE PRIMARY CLINICAL RECORDS. [employer] [facility]. provides no warranty or guarantee of the accuracy or completeness of information in this document.
--- NOTE | 2025-05-29 10:15 | MRI_ITS ---
PROCEDURE: SPINE LUMBAR (ROUTINE) 05/29/2025 REASON FOR EXAM: DDD,OA TECHNIQUE: SPINE LUMBAR (ROUTINE) COMPARISON: 05-13-2025 CR FINDINGS: Straightened lumbar lordotic curve denoting myospasm. The examined vertebrae bodies and posterior neural arches show no fracture or dislocation with preserve vertebral bodies height. Multilevel tiny marginal lipping and faint Modio II/Modio I changes of the lumbar vertebral end plates . Variable degrees of reduced height and bright T2 WI signal of L1-L2, L3-L4 & L4- L5 discs denoting their desiccation. T12-L1: There is no focal disc pathology, central canal stenosis or neural foraminal stenosis. L1-L2: a 1.6 mm diffuse disc bulge indenting the theca and encroaching upon both neural exit foramina inducing mild exiting nerve roots compression. L2-L3: There is no focal disc pathology, central canal stenosis or neural foraminal stenosis. L3-L4: a 2.8 mm diffuse disc bulge indenting the theca and encroaching upon both neural exit foramina inducing moderate exiting nerve roots compression. L4-L5: a diffuse disc bulge with a 6 mm central and left paracentral-left foraminal disc protrusion indenting the theca and encroaching upon both neural exit foramina inducing moderate left and mild right exiting nerve roots compression. L5-S1: There is no focal disc pathology, central canal stenosis or neural foraminal stenosis. The lower thoracic spinal cord, conus medullaris, and cauda equina nerve roots are unremarkable. No marrow infiltrative lesions. Paravertebral soft tissue is unremarkable. No developmental canal stenosis. MRI/Spine Lumbar (Routine) IMPRESSION: Straightened lumbar lordotic curve denoting myospasm. No vertebral fracture or dislocation. L1-L2: a 1.6 mm diffuse disc bulge inducing mild exiting nerve roots compressio n. L3-L4: a 2.8 mm diffuse disc bulge inducing moderate exiting nerve roots compre ssion. L4-L5: a diffuse disc bulge with a 6 mm central and left paracentral-left piedad inal disc protrusion inducing moderate left and mild right exiting nerve roots compression. Reading Location[facility]
== END | disposition home or self-care (01) ==
PROVIDERS: PCP Family Medicine; Referring Provider Family Medicine; Visit Provider Family Medicine
DX: M51.369 Other intervertebral disc degeneration, lumbar region without mention of lumbar back pain or lower extremity pain (principal)
CPT/HCPCS: 72148